=== PATIENT | female | born 1980 | race Two or more races ===

== ENCOUNTER 2020-08-09 19:23 | Emergency (ER) | payer OTHER ==
[~2020-08-09] VITALS: Ht 162.6 cm; Wt 99.0 kg
--- NOTE | 2020-08-09 19:45 | PHYS DOC ---
Past History Past Medical History: Asthma General Adult EDM: Chief Complaint: SHORTNESS OF BREATH HPI: HPI: " Every year.. this happens .. this time of years.. allergies.. congestion, cough... wheezing.. .. " " My inhaler .. is not working...:' Patient is a 40 year old female [place] dependent who presents with above hx and complaints of asthma exacerbation. Pt. currently living in [place] from [facility] with her that is in the [employer] at [place]. Pt. has history of asthma exacerbations since childhood particularly with seasonal triggers. Patient has particular exacerbations at this time a year. Patient has never been admitted overnight for asthma exacerbations. Patient denies any recent travel. Patient does not know her best peak flow. Is up-to-date with vaccinations. No history of immunosuppression. Covid test have been negative. No specific ill contacts. Patient normally follows with Dr. Peterson for care. Patient has not been using patient of her inhaler. Patient states she is normally healthy with exception of occasional asthma exacerbation. Review of Systems: Review of Systems: Constitutional: Denies fever or chills Eyes: Denies change in visual acuity HENT: Complains of nasal congestion and excessive nasal drainage Respiratory: Complains of nonproductive cough and wheezing Cardiovascular: Denies chest pain or edema GI: Denies abdominal pain, nausea, vomiting, bloody stools or diarrhea : Denies dysuria Musculoskeletal: Denies back pain or joint pain Integument: Denies rash Neurologic: Denies headache, focal weakness or sensory changes Endocrine: Denies polyuria or polydipsia Lymphatic: Denies swollen glands Psychiatric: Denies depression or anxiety Family History: Family History: Noncontributory to presentation Current Medications: Current Meds: See nursing for home meds Allergies: Allergies: Has an allergy to an unknown antibiotic Physical Exam: PE: Constitutional: well nourished, moderate acute distress, non-toxic appearance. [] HENT: Normocephalic, atraumatic, bilateral external ears normal, oropharynx moist, copious postnasal drainage, mild erythemic injection, no oral exudates, nose swollen turbinates and florid clear rhinorrhea Eyes: PERRLA, EOMI, conjunctiva normal, no discharge. [] Neck: Normal range of motion, no tenderness, supple, no stridor. [] Cardiovascular:Heart rate regular rhythm, no murmur [] Lungs & Thorax: Bilateral breath sounds equal apex with scattered wheezes on au scultation [] Abdomen: Bowel sounds normal, soft, no tenderness, no masses, no pulsatile masses. Obese Skin: Warm, dry, no erythema, no rash. [] Back: No tenderness, no CVA tenderness. [] Extremities: No tenderness, no cyanosis, no clubbing, ROM intact, no edema. No cording appreciated Neurologic: Alert and oriented X 3, normal motor function, normal sensory function, no focal deficits noted. [] Psychologic: Affect anxious, judgement normal, mood normal. [] EKG: EKG: [] Radiology/Procedures: Radiology/Procedures: [] Heart Score: C/O Chest Pain: N/A Risk Factors: Risk Factors: DM, Current or recent (<one month) smoker, HTN, HLP, family history of CAD, obesity. Risk Scores: Score 0 - 3: 2.5% MACE over next 6 weeks - Discharge Home Score 4 - 6: 20.3% MACE over next 6 weeks - Admit for Clinical Observation Score 7 - 10: 72.7% MACE over next 6 weeks - Early Invasive Strategies Course & Med Decision Making: Course & Med Decision Making Pertinent Labs and Imaging studies reviewed. (See chart for details) Patient received instruction on proper use of MDI-viral respiratory. Patient reports this helped considerably. Use MDI 2 puffs 4 times a day. Follow-up primary care. Use Flonase 2 sprays twice a day to the nose. May take Benadryl 25 to 50 mg 4 times a day for congestion and drainage. Follow-up primary care. Return if any concerns. May need to stay in air conditioning meds possible through the course of allergy season. Return if any concerns. May consider other forms of allergy meds Claritin etc. Impression: 1. Asthma exacerbation 2. Seasonal allergies. [] Dragon Disclaimer: Dragon Disclaimer: This electronic medical record was generated, in whole or in part, using a voice recognition dictation system. Departure Departure: Referrals: PCP,UNKNOWN (PCP) Daniela Disclaimer This chart was dictated in whole or in part using Voice Recognition software in a busy, high-work load, and often noisy Emergency Department environment. It may contain unintended and wholly unrecognized errors or omissions. Dragon Disclaimer This chart was dictated in whole or in part using Voice Recognition software in a busy, high-work load, and often noisy Emergency Department environment. It may contain unintended and wholly unrecognized errors or omissions. LAURENT GONZALES MD Aug 09, 2020 19:45
[2020-08-09] MEDS ORDERED: methylPREDNISolone ACETATE 40 MG/ML VIAL. IM ONE (20:00)
[2020-08-09] MEDS ORDERED: predniSONE 10 MG TABLET. PO ONE (20:00)
[2020-08-09] MEDS ORDERED: ALBUTEROL SULFATE 8GM INHALER. INH ONE (20:00)
[2020-08-09 20:30] VITALS: BP 151/97
== END 2020-08-09 20:30 | disposition home or self-care (01) ==
LOC: ER 19:23
DX: J45.901 Unspecified asthma with (acute) exacerbation (principal)
CPT/HCPCS: 94640; 96372; 99283; J1030; 94664